=== PATIENT | male | born 1940 | race Caucasian/White ===

== ENCOUNTER 2018-06-04 09:41 | Emergency (ER) | payer MEDICARE ==
[~2018-06-04] VITALS: Ht 177.8 cm; Wt 125.6 kg
[~2018-06-04 09:41] MED LIST: ASPI81CH PO; CARV6.25 PO; FISH1000 PO; FURO20 PO; GEMF600 PO; GUAI600T33 PO; LORA10 PO; LOSA50 PO; Omeprazole20 M1; POTCHL10ER PO
[2018-06-04 10:10] LABS: BASOPHILS ABSOLUTE AUTO 0.07 K/mm3 (0.00-0.23); BASOPHILS PERCENT AUTO 1 % (0-2); EOSINOPHILS ABSOLUTE AUTO 0.25 K/mm3 (0.00-0.68); EOSINOPHILS PERCENT AUTO 3 % (0-6); Hematocrit 48.8 % (37.0-53.0); Hemoglobin 15.8 g/dL (13.5-17.5); IMMATURE GRAN ABSOLUTE AUTO 0.04 K/mm3 (0.00-0.10); IMMATURE GRAN PERCENT AUTO 1 % (0-1); LYMPHOCYTES ABSOLUTE AUTO 3.38 K/mm3 (0.84-5.20); LYMPHOCYTES PERCENT AUTO 45 % (21-46); MONOCYTES ABSOLUTE AUTO 0.75 K/mm3 (0.16-1.47); MONOCYTES PERCENT AUTO 10 % (4-13); Mean Corpuscular HGB 28.6 pg (26.0-34.0); Mean Corpuscular HGB Conc 32.4 g/dL (31.5-36.5); Mean Corpuscular Volume 88 fL (80-100); Mean Platelet Volume 11.9 fL (9.1-12.4); NEUTROPHILS ABSOLUTE AUTO 3.09 K/mm3 (1.96-9.15); NEUTROPHILS PERCENT AUTO 41 % (41-73); Platelet Count 173 K/mm3 (150-400); RDW Coefficient Variation 14.4 % (11.7-14.2); RDW Standard Deviation 46.7 fL (35.1-46.3); Red Blood Cell Count 5.52 M/mm3 (4.30-5.90); White Blood Cell Count 7.58 K/mm3 (4.00-11.30)
[2018-06-04 10:22] LABS: Prothrombin Time Results 10.3 Sec (9.7-11.5)
[2018-06-04 10:35] LABS: Alanine Aminotransfer (ALT/SGP 29 U/L (12-78); Albumin/Globulin Ratio 0.9 (0.8-1.8); Alk Phos 94 U/L (50-136); Anion Gap 6 mmol/L (6-16); Aspartate Aminotrans (AST/SGOT 19 U/L (12-37); Bilirubin, Total 0.6 mg/dL (0.1-1.0); Blood Urea Nitrogen 15 mg/dL (8-24); Bun/Creatinine Ratio 18.4 (12.0-20.0); CO2, Blood 28 mmol/L (21-32); Calcium, Blood 8.8 mg/dL (8.5-10.1); Chloride, Blood 107 mmol/L (98-108); Creatinine, Blood 0.82 mg/dL (0.60-1.20); Globulin, Blood 4.5 g/dL (2.2-4.0); Glomerular Filtration Rate >60 (60-); Glucose, Blood 105 mg/dL (70-99); Potassium, Blood 4.3 mmol/L (3.5-5.5); Sodium, Blood 141 mmol/L (136-145); Total Protein, Blood 8.5 g/dL (6.4-8.2); Troponin I <0.015 ng/mL (0.000-0.040)
== END 2018-06-04 11:10 | disposition short-term general hospital (02) ==
LOC: ER 09:41
PROVIDERS: Emergency Medicine
DX: I63.9 Cerebral infarction, unspecified (principal); G81.94 Hemiplegia, unspecified affecting left nondominant side; Z87.891 Personal history of nicotine dependence; Z79.82 Long term (current) use of aspirin; Z79.899 Other long term (current) drug therapy
CPT/HCPCS: 36415; 70496; 70498; 80053; 84484; 85025; 85610; 85730; 93005; 93010; 96374; 96375; 99285-25; J2997; Q9967

== ENCOUNTER 2019-12-08 12:46 | Inpatient (IN) | payer OTHER, MEDICARE ==
[~2019-12-08] VITALS: Ht 177.8 cm; Wt 110.9 kg
[~2019-12-08 12:46] MED LIST changes: -ASPI81CH PO; -CARV6.25 PO; -POTCHL10ER PO
[2019-12-08 13:01] LABS: pH Blood Venous 7.33 (7.34-7.37)
[2019-12-08 13:02] LABS: Base Excess Venous 0.1 mmol/L; Bicarbonate Venous 23.1 mmol/L (24.0-30.0); PCO2 Venous 50 mmHg (38-42); PO2 Venous 35.9 mmHg (38-42)
[2019-12-08 13:10] LABS: BASOPHILS ABSOLUTE AUTO 0.04 K/mm3 (0.00-0.23); BASOPHILS PERCENT AUTO 0 % (0-2); EOSINOPHILS ABSOLUTE AUTO 0.04 K/mm3 (0.00-0.68); EOSINOPHILS PERCENT AUTO 0 % (0-6); Hematocrit 40.8 % (37.0-53.0); Hemoglobin 12.8 g/dL (13.5-17.5); IMMATURE GRAN ABSOLUTE AUTO 0.05 K/mm3 (0.00-0.10); IMMATURE GRAN PERCENT AUTO 0 % (0-1); LYMPHOCYTES ABSOLUTE AUTO 1.82 K/mm3 (0.84-5.20); LYMPHOCYTES PERCENT AUTO 15 % (21-46); MONOCYTES ABSOLUTE AUTO 0.89 K/mm3 (0.16-1.47); MONOCYTES PERCENT AUTO 7 % (4-13); Mean Corpuscular HGB 28.3 pg (26.0-34.0); Mean Corpuscular HGB Conc 31.4 g/dL (31.5-36.5); Mean Corpuscular Volume 90 fL (80-100); Mean Platelet Volume 11.8 fL (9.1-12.4); NEUTROPHILS ABSOLUTE AUTO 9.19 K/mm3 (1.96-9.15); NEUTROPHILS PERCENT AUTO 77 % (41-73); Platelet Count 308 K/mm3 (150-400); RDW Coefficient Variation 14.6 % (11.7-14.2); RDW Standard Deviation 48.6 fL (35.1-46.3); Red Blood Cell Count 4.53 M/mm3 (4.30-5.90); White Blood Cell Count 12.03 K/mm3 (4.00-11.30)
[2019-12-08] MEDS ORDERED: PACERONE100 M1 PO (13:31)
[2019-12-08] MEDS ORDERED: POTCHL10ER PO (13:31)
[2019-12-08] MEDS ORDERED: CARV25 PO (13:31)
[2019-12-08] MEDS ORDERED: Aspir 8181 MG PO (13:32)
[2019-12-08 13:33] LABS: Albumin, Blood 2.8 g/dL (3.4-5.0); Albumin/Globulin Ratio 0.5 (0.8-1.8); Bilirubin, Total 0.8 mg/dL (0.1-1.0); Bun/Creatinine Ratio 24.4 (12.0-20.0); Calcium, Blood 9.1 mg/dL (8.5-10.1); Creatinine, Blood 1.35 mg/dL (0.60-1.20); Globulin, Blood 5.3 g/dL (2.2-4.0); Potassium, Blood 5.3 mmol/L (3.5-5.5); Total Protein, Blood 8.1 g/dL (6.4-8.2); Troponin I 0.206 ng/mL (0.000-0.040)
[2019-12-08] MEDS ORDERED: LEVSOD112 PO (13:33)
[2019-12-08] MEDS ORDERED: Vitamin D2000 UNIT PO (13:33)
[2019-12-08] MEDS ORDERED: CLOP75 PO (13:33)
[2019-12-08] MEDS ORDERED: NITR.4SL SL (13:34)
[2019-12-08] MEDS ORDERED: PRAVASTATIN SOD40 MG PO (13:34)
[2019-12-08] MEDS ORDERED: SPIR50 PO (13:35)
[2019-12-08] MEDS ORDERED: ENTRESTO 97 MG1 EACH PO (13:35)
[2019-12-08] MEDS ORDERED: TORSE20 PO (13:36)
[2019-12-08 14:47] LABS: Source, Urine Catheter
[2019-12-08 14:51] LABS: Appearance, Urine Hazy (Clear); Bilirubin, Urine Neg (Neg); Blood, Urine Neg (Neg); Color, Urine Yellow (P-Yellow); Glucose Qualitative, Urine Neg (Neg); Ketones, Urine Neg (Neg); Leukocyte Esterase, Urine 1+ (Neg); Nitrite, Urine Neg (Neg); Protein, Urine 3+ (Neg); Urobilinogen, Urine 3+ (Normal)
[2019-12-08 15:06] LABS: Amorphous Light (0-Heavy); Bacteria Few /hpf; Red Blood Cells, Urine Not Seen /hpf (0-2)
[2019-12-08 15:07] LABS: Mucus Light (0-Heavy); Squamous Epithelial Cells Not Seen /hpf (Few)
--- NOTE | 2019-12-08 17:30 | NUR ---
ADMIT PT ADMIT FROM ER VIA STRETCHER ON BIPAP AND TRANSFERED TO ICU 1 BED SAFELY, PT ALERT AWARE, FOLLWING COMMANDS AND DENIES PAIN AT THIS TIMES. AICD IN PLACE, RATE AT 40, SR OTHERWISE SBP 90-110S WHILE MAP GREATER THAN 60. PALP PULSE T/O, AFEBRILE NO EDEMA. TOLERATING BIPAP 12/5 AT 50% WITH TACHY SHALLOW ACC MUSCLE USE, SATS IN THE MID 90S, CRACKLES AND DIM BILAT. NPO AT THIS TIME, ABD SOFT OBESE AND NO BM. IGLESIAS IN PLACE CLEAR AND YELLOW URINE. WILL CONT TO MONITOR
[2019-12-08 20:20] LABS: Troponin I 0.214 ng/mL (0.000-0.040)
[2019-12-08 20:22] LABS: Thyroid Stimulating Hormone 2.55 uIU/mL (0.360-4.800)
[2019-12-09 01:23] LABS: BASOPHILS ABSOLUTE AUTO 0.05 K/mm3 (0.00-0.23); BASOPHILS PERCENT AUTO 0 % (0-2); EOSINOPHILS ABSOLUTE AUTO 0.32 K/mm3 (0.00-0.68); EOSINOPHILS PERCENT AUTO 3 % (0-6); IMMATURE GRAN ABSOLUTE AUTO 0.04 K/mm3 (0.00-0.10); IMMATURE GRAN PERCENT AUTO 0 % (0-1); LYMPHOCYTES ABSOLUTE AUTO 1.83 K/mm3 (0.84-5.20); LYMPHOCYTES PERCENT AUTO 15 % (21-46); MONOCYTES ABSOLUTE AUTO 1.04 K/mm3 (0.16-1.47); MONOCYTES PERCENT AUTO 9 % (4-13); Mean Corpuscular HGB 27.4 pg (26.0-34.0); Mean Corpuscular HGB Conc 30.8 g/dL (31.5-36.5); Mean Corpuscular Volume 89 fL (80-100); Mean Platelet Volume 11.5 fL (9.1-12.4); NEUTROPHILS ABSOLUTE AUTO 8.58 K/mm3 (1.96-9.15); NEUTROPHILS PERCENT AUTO 72 % (41-73); Platelet Count 307 K/mm3 (150-400); RDW Coefficient Variation 14.6 % (11.7-14.2); Red Blood Cell Count 4.38 M/mm3 (4.30-5.90); White Blood Cell Count 11.86 K/mm3 (4.00-11.30)
[2019-12-09 01:42] LABS: Anion Gap 7 mmol/L (6-16); Blood Urea Nitrogen 33 mg/dL (8-24); Bun/Creatinine Ratio 27.7 (12.0-20.0); CO2, Blood 25 mmol/L (21-32); Calcium, Blood 8.9 mg/dL (8.5-10.1); Chloride, Blood 112 mmol/L (98-108); Creatinine, Blood 1.19 mg/dL (0.60-1.20); Glomerular Filtration Rate >60 (60-); Glucose, Blood 95 mg/dL (70-99); Magnesium, Blood 2.2 mg/dL (1.6-2.4); Potassium, Blood 4.2 mmol/L (3.5-5.5); Sodium, Blood 144 mmol/L (136-145); Troponin I 0.191 ng/mL (0.000-0.040)
[2019-12-09 05:14] LABS: PCO2 Arterial 39.7 mmHg (35-45); PO2 Arterial 69.4 mmHg (80-100); pH Blood Arterial 7.42 (7.35-7.45)
--- NOTE | 2019-12-09 08:00 | NUR ---
INITIAL ASSESMENT ALERT AWARE, FOLLWING COMMANDS AND DENIES PAIN AT THIS TIMES. AICD IN PLACE, RATE AT 40, SR OTHERWISE SBP 90-110S AND LEVO PER MD ORDER TO MAINTAIN SBP AND MAP GREATER THAN 60. PALP PULSES T/O AND WEANING LEVO TOLERATED AFEBRILE NO EDEMA. TOLERATING BIPAP 12/5 AT 50% WITH TACHY SHALLOW ACC MUSCLE USE, SATS IN THE MID 90S, CRACKLES AND DIM BILAT. NPO AT THIS TIME, ABD SOFT OBESE AND NO BM. IGLESIAS IN PLACE CLEAR AND YELLOW URINE. WILL CONT TO MONITOR
--- NOTE | 2019-12-09 10:42 | NUR ---
Echocardiogram completed.
--- NOTE | 2019-12-09 16:00 | NUR ---
PT UPDATE PT TOLERATING BEING OFF BIPAP AND WEANING LEVO TOLERATED WITH MAP GREATER THAN 60 AND SBP ABOVE 100. CALM COOPERATIVE, DENIES PAIN. SATS WNL, TOLERATING PO INTAKE WITH POOR APETITE. UO ADEQUATE. AT BEDSIDE. WILL CONT TO MONITOR
--- NOTE | 2019-12-09 17:38 | NUR ---
Initial [facility] Care Visit: Change in code status and pt's wishes documented. Pt agreeable and welcoming of visit this afternoon. He is sitting supine in bed with airvo/nc O2 delivery and although it is uncomfortable he is quick to point out that it is a vast improvement over requiring Bipap support. He is not happy about fluid and diet restrictions and states, "why wouldn't they let me have whatever I want? I'm dying." I educated pt on his current full code & full treatment status, what that means, Drs attempts to alleviate his s/s and fine tune his s/s management for home going. He verbalized understanding and frustration equally. Despite extreme dyspnea pt attempts and for the most part is able to talk at great length with gasping breaths every few words. He has a lot to say. He is alert and oriented. He gave, in great detail, his past medical history and the events in recent weeks and yesterday that led to his admission here yesterday. In light of his expressed wishes to be "let go" and articulate description of his extremely poor quality of life, I discussed code status in detail with him. He does not remember saying he wanted to be a full code but does say, "I could have said anything yesterday. I was sure I was coming here to ". Per staff and Dr, pt is "completley different" than yesterday in mentation and alertness. Pt is clear that he does not want CPR, intubation or rescusitative efforts if his heart stops or he is unable to breath on his own. He is worried that his defibrilator will shock him back to life if that happens. We discussed his goals of care after d/c. He is worried about his and the burden his care places on her. She does not drive. He is interested in hospice and we agreed to talk more about that tomorrow. He has a documented EF of 20% prior to admission and would qualify for hospice with a CHF dx. Another echo was done this am with no results available at the time of my visit. 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 Pt's activity tolerance in the past months has been ambulation of 15-30 feet due to extreme dyspnea. 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 He knew he was "dying when he could not drive and had to [facility] a [facility] Deonte states he has asked his [facility] P[facility] for home O2 but that was never evaluated or delivered. Deonte states his is aware of his wishes and asks that I call his to discuss all of the above with her. He states he has will, affairs, burial arrangements for both he and his in order. Pt & 's Ph number in EMR is disconnected. Current # obtained from pt - [phone]. I left his , Eryn, a message and request to return call and will try again in am if she does not call back. Report given to Dr Ang, Dr. Lee and RN re: above. Orders obtained & entered for change in code status to DNR per pt's wishes. Plan to continue advanced care planning with pt and by phone if possible tomorrow, answer questions re: hospice and home going. Will discuss with CM also for asssist with dc planning. Pt plans to go home to care of and supportive services available for both of them. Pt is a and receives his primary care at the [facility].
--- NOTE | 2019-12-09 19:15 | NUR ---
ASSUMED CARE AT 1915, PT ALERT, ON AIRVO 50L/MIN, SATS 92, BP >110, HR IN THE 6OS. DENIES PAIN.
--- NOTE | 2019-12-09 21:51 | NUR ---
PT PLACED ON BIPAP FOR SLEEP
--- NOTE | 2019-12-10 02:12 | NUR ---
PT AWAKE PLACED BACK ON AIRVO
[2019-12-10 03:39] LABS: BASOPHILS ABSOLUTE AUTO 0.04 K/mm3 (0.00-0.23); BASOPHILS PERCENT AUTO 0 % (0-2); EOSINOPHILS ABSOLUTE AUTO 0.24 K/mm3 (0.00-0.68); EOSINOPHILS PERCENT AUTO 2 % (0-6); Hematocrit 40.8 % (37.0-53.0); Hemoglobin 12.7 g/dL (13.5-17.5); IMMATURE GRAN ABSOLUTE AUTO 0.05 K/mm3 (0.00-0.10); IMMATURE GRAN PERCENT AUTO 0 % (0-1); LYMPHOCYTES ABSOLUTE AUTO 1.25 K/mm3 (0.84-5.20); LYMPHOCYTES PERCENT AUTO 10 % (21-46); MONOCYTES ABSOLUTE AUTO 1.03 K/mm3 (0.16-1.47); MONOCYTES PERCENT AUTO 9 % (4-13); Mean Corpuscular HGB 27.6 pg (26.0-34.0); Mean Corpuscular HGB Conc 31.1 g/dL (31.5-36.5); Mean Corpuscular Volume 89 fL (80-100); Mean Platelet Volume 11.4 fL (9.1-12.4); NEUTROPHILS ABSOLUTE AUTO 9.37 K/mm3 (1.96-9.15); NEUTROPHILS PERCENT AUTO 78 % (41-73); Platelet Count 266 K/mm3 (150-400); RDW Coefficient Variation 14.6 % (11.7-14.2); RDW Standard Deviation 47.4 fL (35.1-46.3); White Blood Cell Count 11.98 K/mm3 (4.00-11.30)
--- NOTE | 2019-12-10 03:55 | NUR ---
PT IS TALKING ABOUT END OF LIFE AND STATED TO "LET ME GO" WHEN ASKED IF HE WANTED TO BE INTUBATED OR COMPRESSIONS.PT IS AWARE BUT WITH SUCH LOW SATS MAY BE A LITTLE CONFUSED AT TIMES. I BELEIVE IT NEEDS TO BE DISCUSSED WITH AND DOCTOR TO CLEARIFY.
[2019-12-10 03:58] LABS: Albumin, Blood 2.5 g/dL (3.4-5.0); Anion Gap 8 mmol/L (6-16); Blood Urea Nitrogen 25 mg/dL (8-24); CO2, Blood 28 mmol/L (21-32); Calcium, Blood 8.7 mg/dL (8.5-10.1); Chloride, Blood 105 mmol/L (98-108); Creatinine, Blood 1.04 mg/dL (0.60-1.20); Glomerular Filtration Rate >60 (60-); Glucose, Blood 90 mg/dL (70-99); Phosphorus, Blood 3.2 mg/dL (2.5-4.9); Potassium, Blood 3.6 mmol/L (3.5-5.5); Sodium, Blood 141 mmol/L (136-145)
--- NOTE | 2019-12-10 04:58 | NUR ---
PT WOULD LIKE TO WAIT FOR BEFORE ALLOWING ME TO PLACE DNR BAND. DNR ORDER IN PLACE BUT PT FEARS THAT HE IS GOING TO PASS BEFORE HIS ARRIVES AND DOES NOT FULLY UNDERSTAND WHAT THE DNR MEANS. SHOULD BE FURTHER DISCUSSED WITH DOCTOR.
--- NOTE | 2019-12-10 06:29 | NUR ---
PT ALERT, FOLLOWS COMMANDS. HARD OF HEARING ,ONLY HAS ONE HEARING AID. PT ON AIRVO AT START OF SHIFT SWITCHED TO BIPAP FOR SLEEP. PATIENT WOKE SAYING HE COULDNT BREATH WITH THE BIPAP ON AND WAS SATING 85%. PT PLACED ON AIRVO SET AT 60L/80%. DENIES PAIN BUT DOES BECOME SOB WITH EXCERTION. IGLESIAS IN PLACE AND PT HAD 1200ML URINE OUTPUT. BLOOD PRESSURE SOFT POST LASIX, LEVO AVAILABLE. PACEMAKER SET AT 40
--- NOTE | 2019-12-10 09:00 | NUR ---
CASE CONFERENCE AND VISIT: Spoke with by phone per pt's request. Eryn is able to verbalize thorough understanding of Deonte's precarious heart and lung issues and end stage disease. She is in full agreement with DNR per Deonte's wishes and they have spoken about this previously. Eryn also told about his extremely poor quality of life in recent months due to profound dyspnea and activity intolerance. She does not drive and is dependent on a neighbor to bring her in. She plans to be in this afternoon and knows to have RN page me to meet in person. She and Deonte both have stated they would like hospice support at home if he is able to be discharged home. She has three children. A son from [place] is arriving this evening but has to return home by Friday. One daughter lives in [place] and another lives locally but "to be honest, she doesn't want anything to do with Deonte." I am not certain from our conversation if these are Deonte's children also but this seems to be the extent of family that might be available to help her. We discussed friends, neighbors and hiring help if needed in addition to her care and Hospice services in the home. Deonte is a and may have access to the hospice unit at the [facility]. Discussed all of the above with Jessy BENDER before visiting pt again this am. YULIA Jiménez had met with Deonte already this am. Visit made to Deonte, who expressed certainty that he will before his came to visit this am. In the next sentence he asked if I could see if neurology could see him as he was certain his foot tremor, brain and heart dysfunction were connected and accupuncture might help. He is alert and oriented but seems to have very poor insight in regard to his health status. He is severely dyspnic, has airvo on, continues to talk despite severe dyspnia. We reviewed his code status again and he stated, "I'm done. There would be no sense in trying to resuscitate me" I explained what the purple band with DNR was and that it communicated his wishes to staff. He initially didn't want it on because he didn't want to before his came to visit again. His did come in for a visit yesterday evening and plans to again this afternoon. He states the DNR band can be placed if staff need for it to be. He reiterates his wishes to be "let go". If I am able to meet with pt and together this afternoon I will discuss comfort care and hospice further per 's request. RN to page me if arrives for a visit.
--- NOTE | 2019-12-10 09:46 | NUR ---
CARE ASSUMED CARE AND REPORT ASSUMED FROM DANDRE LOWRY. PT SITTING UP IN BED WATCHING TV. DENIES PAIN AT THIS TIME. CURRENTLY ON AIRVO 60L, 80% 02. LUNG SOUNDS CORASE AND DIMINSHED. BP WNL. PACED RHYTHM, HR 60-70S. ASSISTED PT WITH REPOSITIONING BUT HE REFUSES TO TURN AT THIS TIME. DNR STATUS. CONTINUALLY TALKING IN DOOM AND GLOOM, STATING HE IS GOING TO SOON. PALLIATIVE CARE TALKED WITH PT AND . IV SALINE LOCKED AT THIS TIME. TOLERATES PO WITH NO SIGNS OF ASPIRATION OR CHOKING. DIET ADVANCED TO FULL LIQUIDS. WILL CONTINUE TO MONITOR.
--- NOTE | 2019-12-10 12:02 | NUR ---
Pal Care VISIT and UPDATE: Pt again expressing his concern that he will be shocked by his defibrilator and is asking that it be turned off. RN notified and call placed with hospitalist to discuss. Met with both and pt in the room. Pt is very clear that he does not feel that he wants to continue with treatment of his end stage heart disease. He states even if he were to improve enough to go home, his quality of life is not satisfactory and he feels he has no reserves to keep trying to improve. His is supportive of his requests but is also fearful of a change in goals. We discussed comfort care, hospice, his current O2 requirements an inability to reproduce this level of respiratory support at home. Pt would like comfort care instituted as soon as possible. His and he are tearful and appropriate. I asked if I could give them some time to talk and consider privately. I assured and pt that it wasn't a decision that was required for them to make on any timeframe and that it would only be instituted at their request. RN in room to hang IV and was updated on my plan to return and answer any questions further re: goals of care, comfort care. will have me paged if or pt would like me to return sooner. Pt cannot say whether he is in pain physically but is displaying nonverbal indicators of pain, grimacing and groaning. He is reminded to inhale thru nose to get max benefit of nasal canula. He can barely talk but keeps trying. Encouraged him to rest and save energy for important conversations with his and family. Son is arriving this kim.
--- NOTE | 2019-12-10 12:05 | NUR ---
REASSESSMENT PT SITTING UP IN BED TALKING WITH ABOUT POSSIBLE COMFORT CARE. PT REQUESTING TO HAVE AICD TURNED OFF; WILL TALK WITH MD. REMAINS ON AIRVO 6L, 80%. PACED RHYTHM. NOT WANTING TO EAT MUCH. WILL CONTINUE TO MONITOR.
--- NOTE | 2019-12-10 16:10 | NUR ---
REASSESSMENT PT REMAINS ON AIRVO 60L, 80% FIO2. VISITED WITH EARLIER. DENIES PAIN AT THIS TIME. VSS. PACED RHYTHM. ANBX INFUSING. CALLS APPORPRIATELY . WILL CONTINUE TO MONITOR.
--- NOTE | 2019-12-10 17:30 | NUR ---
SHIFT SUMMARY PT USED BIPAP 1 X DURING SHIFT AND HAS REMAINED ON AIRVO 60L, 80%. AND PT SPOKE WITH PALLIATIVE CARE MULTIPLE TIMES REGARDING TRANSITIIONING TO COMFORT CARE. PT AND FAMILY REPORT HE IS NOT QUITE READY TO TRANSITION AT THIS TIME. REFUSED MOST REPOSITIONING THROUGHOUT SHIFT. REMAINED IN BED DUE TO RAPID DYSPNEA AND RESP DECLINE WITH ANY ACTIVITY. VSS DURING SHIFT. BP DROPPED SLIGHTLY AFTER LASIX ADMINISTRATION. WILL GIVE BEDSIDE, HANDOFF REPORT TO IVAN RN.
--- NOTE | 2019-12-10 21:23 | NUR ---
PT RESTING IN BED. A/O X4. PT STATES HE IS A DNR AND THAT HE HAS BEEN DISCUSSING COMFORT CARE OPTIONS. PT DOES NOT WANT ANY MORE "DRUGS" ADDED TO CARE AT THIS TIME. WANTS TO REST TONIGHT WITH MINIMAL INTERUPTIONS. ON AIRVO. DESATS QUICKLY WHEN BLOWING NOSE. NO SIGN OF DISTRESS AT THE MOMENT. CALL LIGHT IN REACH.
[2019-12-11 03:38] LABS: BASOPHILS ABSOLUTE AUTO 0.03 K/mm3 (0.00-0.23); BASOPHILS PERCENT AUTO 0 % (0-2); EOSINOPHILS ABSOLUTE AUTO 0.21 K/mm3 (0.00-0.68); EOSINOPHILS PERCENT AUTO 2 % (0-6); Hematocrit 39.7 % (37.0-53.0); Hemoglobin 12.3 g/dL (13.5-17.5); IMMATURE GRAN ABSOLUTE AUTO 0.07 K/mm3 (0.00-0.10); IMMATURE GRAN PERCENT AUTO 1 % (0-1); LYMPHOCYTES ABSOLUTE AUTO 1.14 K/mm3 (0.84-5.20); LYMPHOCYTES PERCENT AUTO 9 % (21-46); MONOCYTES ABSOLUTE AUTO 1.31 K/mm3 (0.16-1.47); MONOCYTES PERCENT AUTO 10 % (4-13); Mean Corpuscular HGB 27.4 pg (26.0-34.0); Mean Corpuscular Volume 88 fL (80-100); Mean Platelet Volume 11.4 fL (9.1-12.4); NEUTROPHILS ABSOLUTE AUTO 10.06 K/mm3 (1.96-9.15); NEUTROPHILS PERCENT AUTO 79 % (41-73); Platelet Count 232 K/mm3 (150-400); RDW Coefficient Variation 14.5 % (11.7-14.2); RDW Standard Deviation 46.7 fL (35.1-46.3); Red Blood Cell Count 4.49 M/mm3 (4.30-5.90); White Blood Cell Count 12.82 K/mm3 (4.00-11.30)
[2019-12-11 04:01] LABS: Anion Gap 6 mmol/L (6-16); Blood Urea Nitrogen 25 mg/dL (8-24); Bun/Creatinine Ratio 22.7 (12.0-20.0); CO2, Blood 29 mmol/L (21-32); Calcium, Blood 8.7 mg/dL (8.5-10.1); Chloride, Blood 105 mmol/L (98-108); Glomerular Filtration Rate >60 (60-); Glucose, Blood 110 mg/dL (70-99); Magnesium, Blood 2.3 mg/dL (1.6-2.4); Phosphorus, Blood 3.4 mg/dL (2.5-4.9); Potassium, Blood 3.6 mmol/L (3.5-5.5); Sodium, Blood 140 mmol/L (136-145)
--- NOTE | 2019-12-11 06:36 | NUR ---
SUMMARY PT RESTING IN BED. ON AIRVO ALL NIGHT. ENCOURAGED BIPAP BUT PT REFUSES. PT DID NOT WANT TO BE BOTHERED MUCH DURING THE NIGHT. DESATS QUICKLY IF OFF AIRVO FOR ANY SHORT PERIOD OF TIME. CALLS WITH CALL LIGHT APPROPRIATELY. NO SIGN OF DISTRESS THIS AM.
--- NOTE | 2019-12-11 09:00 | NUR ---
CARE ASSUMED REPORT RECEIVED, CARE ASSUMED AT 0900. DURING INTIAL ASSESSMENT, PT SLEEPING SOUNDLY, BUT DOES AROUSE WITH STIMULI. PT LOOKS UP AT SCREEN AND SAYS, "I THOUGHT THE MONITOR WOULD BE OFF BY NOW." ASKED THE PATIENT IF HE WOULD LIKE IT TURNED A DIFFERENT DIRECTION OR IF HE WOULD LIKE IT TURNED OFF. PT STATES, "NO, YOU DO IT YOUR WAY." PROVIDED ENCOURAGEMENT TO EXPRESS WISHES/NEEDS WE WANT TO HONOR THOSE WISHES. PT AGREEABLE. PT ORIENTED X4. ALLOWS REPOSITIONING AND CARES. RR IN 40'S ON AIRVO AT REST AND WITH CONVERSATION. 02 SAT TO THE 70'S. AGREEABLE TO WEAR BIPAP. FIO2 INCREASED TO 100%. ENCOURAGED PT TO SLOW BREATHING. PT CALM, CLOSES EYES AND SLOWS BREATHING TO THE 30'S. 02 SAT IMPROVED TO LOW 90'S. UNABLE TO GIVE ORAL MEDICATIONS AT THIS TIME DUE TO RESPIRATORY RATE AND INABILITY FOR PT TO TOLERATE TIME OFF WITHOUT DESATURATING. PT FALLS ASLEEP QUICKLY AFTER ASSESSMENT AND CARES. PT HYPOTENSIVE, UNABLE TO GIVE MORNING LASIX. SEE SHIFT ASSESSMENT/FLOWSHEET.
--- NOTE | 2019-12-11 09:22 | NUR ---
DR. JULIAN COMMUNICATION SPOKE WITH DR. JULIAN REGARDING PT'S INCREASING 02 REQUIREMENTS AND SEVERE DYSPNEA AT REST AND DECREASING BLOOD PRESSURE. REQUESTED TO SPEAK WITH PALLIATIVE CARE TO SEE IF PLAN FOR CONTINUED MEASURES COULD BE EXPEDITED. CALL PLACED TO PALLIATIVE CARE, MESSAGE LEFT, AWAITING RETURN PHONE CALL.
--- NOTE | 2019-12-11 10:27 | NUR ---
PLAN OF CARE SPOKE WITH PT'S ON PHONE WHO STATES SHE WANTS TO TALK TO PATIENT AND PALLIATIVE CARE ABOUT MOVING PATIENT TO COMFORT CARE. SHE WILL BE IN AT 11. MESSAGE LEFT FOR PALLIATIVE CARE.
--- NOTE | 2019-12-11 11:00 | NUR ---
Clinical Visit: Pt is alert, oriented. He is severely short of breath and anxious. He agrees very quickly for being "comfortable" and states, "whatever you have to do." Conversation attempted with pt, however, he is struggling to breathe and asking the nurse questions. Spoke with the pt's . She states that they had talked about comfort care measures yesterday at length. She reports that she's not really even sure why they had waited to make this decision today. is tearful, supervisor pipe joints visit offered. She states that she is not sure if that would be helpful to her , he has no adventist preference that she is aware of and not sure if the supervisor pipe joints would bring him peace. Discussed with fishing floats assembler and orders to be placed for comfort measures. Discussed care with nurseGloria. Will remain available.
--- NOTE | 2019-12-11 11:16 | NUR ---
COMFORT CARE PT'S TO BEDSIDE. PT SAYS, "TAKE THIS MASK OFF." PT PLACED BACK ON AIRVO. 02 SAT 80'S. PALLIATIVE CARE TO BEDSIDE. PLAN TO MOVE FORWARD WITH COMFORT CARE. SEE PALLIATIVE CARE NOTE. PT REQUESTING ORANGE JUICE. BED SAT UP, JUICE PROVIDED. PT TOLERATED WELL. PT AND DECLINE FURTHER NEEDS.
--- NOTE | 2019-12-11 13:02 | NUR ---
UPDATE SINCE PREVIOUS NOTE, PT AND REQUENT AICD BE TURNED OFF. SPOKE WITH [facility]ART [facility]ENTER NURSE WHO COORDINATED THAT REP WILL BE HERE TO TURN OFF. CONSENT FORM SIGNED BY PT HE IS ALERT AND ORIENTED. DR. HANLEY TO BEDSIDE FOR CONSENT. PT ALSO SAYS WITH IN ROOM THAT HE WANTS TO STAY ON AIRVO UNTIL HIS IS NO LONGER HERE AND THEN HE WANTS PAIN MEDICATION AND THE AIRVO TURNED OFF ONCE HE IS ASLEEP. SINCE THEN, PT'S LEFT. PT REQUESTING MEDICATIONS TO KEEP HIM COMFORTABLE. MEDICATED FOR INCREASED RR AND ANXIETY. AIRVO CONTINUES TO BE IN PLACE, PT REQUESTED THAT IT BE TAKEN OFF ONCE HE IS SLEEPING. PT DECLINES FURTHER NEEDS. CALL LIGHT IN LEFT HAND AND AGREES TO CALL IF HE NEEDS ANYTHING, BUT ALSO NODS IN UNDERSTANDING THAT STAFF WILL BE CHECKING IN ON HIM AND HIS COMFORT.
--- NOTE | 2019-12-11 14:55 | NUR ---
UPDATE SINCE PREVIOUS NOTE, PT HAS CONTINUED TO BE ALERT AND ORIENTED AND ABLE TO MAKE NEEDS KNOWN. PT IN GOOD SPIRITS, MAKING JOKES EVEN IN BETWEEN RESTING. PT REPEATEDLY REQUESTING "JUST KNOCK ME OUT." PT EDUCATED ON PROCESS OF AND DYING AND TOLD HE WILL BE KEPT COMFORTABLE. RR EXTREMELY ELEVATED 40'S-50'S EVEN AFTER ALL MEDS, CALL TO DR. HANLEY TO UPDATE FREQUENCY OF MORPHINE. MEDICATED FOR AIR HUNGER PRIMARILY. PT ALSO MOST RECENTLY REPORTING NEW ONSET CHEST PAIN. MEDICATED. PACEMAKER TURNED OFF BY PACEMAKER REP, SEE PAPER CHART FOR DOCUMENTATION.
--- NOTE | 2019-12-11 15:40 | NUR ---
UPDATE PT PROVIDED WITH COOL WASHCLOTHS FREQUENTLY. INITIALLY, PT REPORTING THIS FELT GOOD. PT NO LONGER AROUSING WHEN STAFF ARE IN ROOM. HOWEVER, PT CONTINUES TO BE RESTLESS, MOVING ARMS AND LEGS AROUND IN BED. REACHES UP, SCRATCHES FACE AND RUBS CHEST. OXYGEN OFF. PT'S COLOR MAHONEY. RR CONTINUE TO BE EXTREMELY HIGH BUT BECOMING MUCH MORE SHALLOW. SEE EMAR FOR MEDICATION.
--- NOTE | 2019-12-11 16:07 | NUR ---
PT NOTED TO NO LONGER BE BREATHING AT 1550. NO PULSE FELT OR HEARD. DR. HANLEY NOTIFIED. PT'S NOTIFIED AND PLANS TO COME VISIT PATIENT. AT THAT TIME, WILL FOLLOW UP WITH WHICH MORTUARY THEY PREFER. IV TAKEN OUT, IGLESIAS TAKEN OUT, PT CLEANED.
== END 2019-12-11 15:30 | DRG 871 ==
LOC: ER 12:46 → ICUW 14:37 → ICUE 14:37
PROVIDERS: Emergency Medicine; Family Medicine; Internal Medicine Critical Care Medicine; Internal Medicine Pulmonary Disease; Nurse Practitioner Acute Care; ADMIT Hospitalist
PROC: 3E033XZ Introduction of Vasopressor into Peripheral Vein, Percutaneous Approach (ICD-10-PCS; principal; 2019-12-08)
DX: A41.9 Sepsis, unspecified organism (principal); R65.21 Severe sepsis with septic shock; I21.4 Non-ST elevation (NSTEMI) myocardial infarction; J18.9 Pneumonia, unspecified organism; J96.01 Acute respiratory failure with hypoxia; I50.23 Acute on chronic systolic (congestive) heart failure; N17.9 Acute kidney failure, unspecified; Z51.5 Encounter for palliative care; I11.0 Hypertensive heart disease with heart failure; E03.9 Hypothyroidism, unspecified; I25.10 Atherosclerotic heart disease of native coronary artery without angina pectoris; Z86.73 Personal history of transient ischemic attack (TIA), and cerebral infarction without residual deficits; E78.5 Hyperlipidemia, unspecified; K21.9 Gastro-esophageal reflux disease without esophagitis; R57.0 Cardiogenic shock; Z95.1 Presence of aortocoronary bypass graft; Z95.810 Presence of automatic (implantable) cardiac defibrillator
CPT/HCPCS: 36415; 36600; 51702; 71045; 80048; 80053; 80069; 81001; 82803; 83605; 83735; 83880; 84100; 84145; 84443; 84484; 85025; 87040; 87070; 87086; 87205; 93005; 93010; 93306; 94660; 96365-59; 96367-59; 96375-59; 99285-25; A9270-GY; J0456; J0696; J1650; J1940; J2060; J7030; J7050; J7060